=== PATIENT | male | born 1975 | race Two or more races ===

== ENCOUNTER 2019-05-09 01:55 | Emergency (ER) | payer MEDICARE, MEDICAID ==
[~2019-05-09] VITALS: Ht 177.8 cm; Wt 99.8 kg
[2019-05-09] MEDS ORDERED: METFORMIN HCL500 M1 ORAL (01:57)
[2019-05-09] MEDS ORDERED: Isovue-300 100ml vial INJ PRN ×2 (02:00→04:15)
--- NOTE | 2019-05-09 02:13 | Emergency Room Report ---
History of Present Illness General Chief Complaint: Abdominal Pain Source: Patient Present Illness HPI Presents with epigastric/right upper quadrant pain x1 day, no aggravating or alleviating factors severity is severe, symptoms are constant, patient endorses a sharp pain patient states that he had some form of pancreatic surgery at one point, he denies any nausea vomiting fevers chills chest pain or shortness of breath. Allergies: Coded Allergies: No Known Allergies (Unverified , 05/09/19) Nursing Documentation-[facility] Past Medical History: No History, Except For Hx Hypertension: Yes Hx Diabetes: Yes Physical Exam Vital Signs Date Time Temp Pulse Resp B/P (MAP) Pulse Ox O2 Delivery O2 Flow Rate FiO2 05/09/19 01:55 97.9 100 14 112/70 (84) 94 Room Air Medical Decision Making Diagnostic Impression: Primary Impression: Abdominal pain Qualified Codes: R10.84 - Generalized abdominal pain ER Course 43-year-old male presents with abdominal pain differential diagnosis includes cholecystitis, diverticulitis, appendicitis Patient given pain medication, fluids, will obtain labs, CT Reevaluation 5:35 AM, patient is asymptomatic Patient with abdominal pain of unknown etiology, patient given strict abdominal return precautions, disposition home with return precautions Laboratory Tests Test 05/09/19 02:50 05/09/19 03:10 White Blood Count 5.5 K/UL (4.8-10.8) Red Blood Count 3.94 M/UL (4.70-6.10) L Hemoglobin 12.5 G/DL (14.2-18.0) L Hematocrit 35.6 % (42.0-52.0) L Mean Corpuscular Volume 90 FL (80-99) Mean Corpuscular Hemoglobin 31.8 PG (27.0-31.0) H Mean Corpuscular Hemoglobin Concent 35.1 G/DL (32.0-36.0) Red Cell Distribution Width 11.5 % (11.6-14.8) L Platelet Count 279 K/UL (150-450) Mean Platelet Volume 5.3 FL (6.5-10.1) L Neutrophils (%) (Auto) 55.6 % (45.0-75.0) Lymphocytes (%) (Auto) 34.2 % (20.0-45.0) Monocytes (%) (Auto) 6.9 % (1.0-10.0) Eosinophils (%) (Auto) 1.5 % (0.0-3.0) Basophils (%) (Auto) 1.7 % (0.0-2.0) Prothrombin Time 10.1 SEC (9.30-11.50) Prothrombin Time INR 0.9 (0.9-1.1) PTT 21 SEC (23-33) L Sodium Level 144 MMOL/L (136-145) Potassium Level 3.9 MMOL/L (3.5-5.1) Chloride Level 110 MMOL/L (98-107) H Carbon Dioxide Level 21 MMOL/L (21-32) Anion Gap 13 mmol/L (5-15) Blood Urea Nitrogen 5 mg/dL (7-18) L Creatinine 0.9 MG/DL (0.55-1.30) Estimate Glomerular Filtration Rate > 60 mL/min (>60) Glucose Level 171 MG/DL (74-106) H Calcium Level 8.5 MG/DL (8.5-10.1) Total Bilirubin 0.3 MG/DL (0.2-1.0) Aspartate Amino Transferase (AST) 35 U/L (15-37) Alanine Aminotransferase (ALT) 36 U/L (12-78) Alkaline Phosphatase 83 U/L (46-116) Total Protein 7.4 G/DL (6.4-8.2) Albumin 3.3 G/DL (3.4-5.0) L Globulin 4.1 g/dL Albumin/Globulin Ratio 0.8 (1.0-2.7) L Lipase 203 U/L (73-393) Urine Color Yellow Urine Appearance Clear Urine pH 5 (4.5-8.0) Urine Specific [place] 1.025 (1.005-1.035) Urine Protein 2+ (NEGATIVE) H Urine Glucose (UA) Negative (NEGATIVE) Urine Ketones 2+ (NEGATIVE) H Urine Blood Negative (NEGATIVE) Urine Nitrite Negative (NEGATIVE) Urine Bilirubin Negative (NEGATIVE) Urine Urobilinogen Normal MG/DL (0.0-1.0) Urine Leukocyte Esterase 1+ (NEGATIVE) H Urine RBC 0 /HPF (0 - 0) Urine WBC 10-15 /HPF (0 - 0) H Urine Squamous Epithelial Cells None /LPF (NONE/OCC) Urine Bacteria Few /HPF (NONE) EKG Diagnostic Results EKG Time: 02:06 EP Interpretation: Sinus tachycardia, rate 106, QTc 435, normal axis, no acute ST elevations Rhythm Strip Diag. Results Rhythm Strip Time: 03:13 EP Interpretation: yes Rate: 107 Rhythm: other - Sinus tachycardia Last Vital Signs Date Time Temp Pulse Resp B/P (MAP) Pulse Ox O2 Delivery O2 Flow Rate FiO2 05/09/19 01:55 97.9 100 14 112/70 (84) 94 Room Air Disposition: HOME, SELF-CARE Condition: Stable Scripts Naproxen* (NAPROSYN*) 250 Mg Tablet 250 MG ORAL BID PRN for For Pain, #20 TAB 0 Refills Prov: Sohail Montano MD 05/09/19 Referrals: [facility] Patient Instructions: Abdominal Pain, Adult Additional Instructions: The patient was provided with discharge instructions, notified to follow-up with a primary care doctor and or specialist in the next 24-48 hours, and to return to the ED if they have worsening of their symptoms. Please note that this report is being documented using Brightfish technology. This can lead to erroneous entry secondary to incorrect interpretation by the dictating instrument. Sohail Montano MD May 09, 2019 02:13
[2019-05-09] MEDS ORDERED: Morphine Sulfate 4mg/ml Inj (IV USE ONLY) IVP ONE (02:45)
[2019-05-09 03:00] VITALS: BP 128/82
[2019-05-09 03:18] LABS: BASOPHILS % (AUTO) 1.7 % (0.0-2.0); EOSINOPHILS % (AUTO) 1.5 % (0.0-3.0); HEMATOCRIT 35.6 % (42.0-52.0); HEMOGLOBIN 12.5 G/DL (14.2-18.0); LYMPHOCYTES % (AUTO) 34.2 % (20.0-45.0); MEAN CORPUSCULAR VOLUME 90 FL (80-99); MONOCYTES % (AUTO) 6.9 % (1.0-10.0); NEUTROPHILS % (AUTO) 55.6 % (45.0-75.0); PLATELET COUNT 279 K/UL (150-450); RED BLOOD COUNT 3.94 M/UL (4.70-6.10); RED CELL DISTRIBUTION WIDTH 11.5 % (11.6-14.8); WHITE BLOOD COUNT 5.5 K/UL (4.8-10.8)
--- NOTE | 2019-05-09 03:30 | NUR ---
ED Nurse Note: Recieved report from Eva. Pt ambulated to ED from work c/o 06/07 abdominal pain. Pt denies N/V/D, VSS, A&Ox4
[2019-05-09 03:31] LABS: INR 0.9 (0.9-1.1)
[2019-05-09 03:36] LABS: ANION GAP 13 mmol/L (5-15); BLOOD UREA NITROGEN 5 mg/dL (7-18); CALCIUM 8.5 MG/DL (8.5-10.1); CARBON DIOXIDE 21 MMOL/L (21-32); CHLORIDE 110 MMOL/L (98-107); CREATININE 0.9 MG/DL (0.55-1.30); POTASSIUM 3.9 MMOL/L (3.5-5.1); SODIUM 144 MMOL/L (136-145)
[2019-05-09 03:41] LABS: ALANINE AMINOTRANSFERASE 36 U/L (12-78); ALBUMIN 3.3 G/DL (3.4-5.0); ALBUMIN/GLOBULIN RATIO 0.8 (1.0-2.7); ALKALINE PHOSPHATASE 83 U/L (46-116); ASPARTATE AMINO TRANSFERASE 35 U/L (15-37); BILIRUBIN,TOTAL 0.3 MG/DL (0.2-1.0)
[2019-05-09 03:44] LABS: APPEARANCE,URINE CLEAR; BILIRUBIN, URINE NEGATIVE (NEGATIVE); GLUCOSE, URINE (UA) NEGATIVE (NEGATIVE); KETONES,URINE 2+ (NEGATIVE); LEUKOCYTE ESTERASE ,URINE 1+ (NEGATIVE); NITRITE,URINE NEGATIVE (NEGATIVE); PH,URINE 5 (4.5-8.0); PROTEIN,URINE 2+ (NEGATIVE); UROBILINOGEN,URINE NORMAL MG/DL (0.0-1.0)
[2019-05-09 03:49] LABS: COLOR,URINE YELLOW
--- NOTE | 2019-05-09 06:16 | Diagnostic Imaging Report ---
Clinical Indication: Abdominal pain Technique: No oral contrast utilized, per emergency room physician request IV administration nonionic contrast. Multiphasic spiral acquisitions obtained through the abdomen. Exam was requested as abdomen and pelvis, but apparently patient moved prior to scanning resulting in failure to scan the pelvis. Multiplanar reconstructions were generated. Total dose length product 951.4 mGycm. CTDIvol(s) 18.4 mGy. Dose reduction achieved using automated exposure control Comparison: none Findings: There is nonspecific haziness to the fat of the mesenteric root. The distal esophagus and duodenum are unremarkable. The stomach demonstrates a linear metallic foreign body posteriorly in the fundus. The visualized small bowel and colon are unremarkable. Lack of IV contrast limits assessment of solid organs. The liver is mildly hypoattenuating, consistent with fatty change. No gross focal abnormality. The gallbladder is nondistended. No biliary ductal dilatation. The pancreas, spleen adrenals are unremarkable. There is nonspecific bilateral perinephric fat stranding. The right kidney demonstrates considerable lower pole cortical scarring. There are at least 2 punctate calyceal calcifications on the right. No left renal calculi demonstrated.. Most of the chest was included in the imaging volume. The included lungs are clear except for some posterior basilar dependent atelectatic changes. The heart size is normal. No pericardial effusion. No mediastinal or hilar mass or adenopathy. No axillary or chest wall mass or adenopathy. Impression: Limited exam, as described, with nonvisualization of the pelvis Nonspecific increased attenuation of the fat of the mesenteric root Linear foreign body within the stomach. This may be an ingested foreign body or represent an endoscopically placed surgical clip Fatty liver Right renal calculi. Right renal cortical scarring Nonspecific bilateral perinephric fat stranding Basilar pulmonary parenchymal atelectatic changes This essentially agrees with the preliminary interpretation provided overnight by [place] [facility], with minor variations. The CT scanner at [facility] is accredited by the [place] and the scans are performed using protocols designed to limit radiation exposure to as low as reasonably achievable to attain images of sufficient resolution adequate for diagnostic evaluation.
[2019-05-09] MEDS ORDERED: NAPROXEN250 MG ORAL (06:19)
[2019-05-09 06:30] VITALS: BP 128/82
--- NOTE | 2019-05-09 06:30 | NUR ---
ER DISCHARGE NOTE: Patient is cleared to be discharged per ERMD, pt is aox4, on room air, with stable vital signs. pt was given dc and prescription instructions, pt was able to verbalize understanding, pt id band and iv site removed without complications. pt is able to ambulate with steady gait. pt took all belongings.
--- NOTE | 2019-05-09 18:44 | Cardiology Report ---
APPROVED REPORT EKG Measurement Heart [id number] IL 118P29 [id number] Sinus tachycardia Otherwise normal ECG
== END 2019-05-09 06:30 | disposition home or self-care (01) ==
LOC: EDBD 01:55 → EMR 02:08
DX: R10.84 Generalized abdominal pain (principal); E11.9 Type 2 diabetes mellitus without complications; I10 Essential (primary) hypertension
CPT/HCPCS: 36415; 74160; 80053; 81003; 83690; 85025; 85610; 85730; 86850; 86900; 86901; 87086; 93005; 96374; 96375; 99284; J2270; J2405; Q9967; S0028

== ENCOUNTER 2019-05-09 23:25 | Emergency (ER) | payer MEDICARE, MEDICAID ==
[~2019-05-09] VITALS: Ht 172.7 cm; Wt 81.6 kg
[~2019-05-09 23:25] MED LIST: METFORMIN HCL500 M1 ORAL; NAPROXEN250 MG ORAL
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
[2019-05-10] VITALS (10 sets, daily range): BP systolic 105–135; BP diastolic 56–89
--- NOTE | 2019-05-10 | NUR ---
ED Nurse Note: pt admits drinking and smoking marijuana today.
--- NOTE | 2019-05-10 00:20 | NUR ---
BELONGINGS IN LOCKER 2
[2019-05-10 00:51] LABS: BASOPHILS % (AUTO) 0.7 % (0.0-2.0); EOSINOPHILS % (AUTO) 2.1 % (0.0-3.0); HEMATOCRIT 34.7 % (42.0-52.0); HEMOGLOBIN 12.3 G/DL (14.2-18.0); LYMPHOCYTES % (AUTO) 33.6 % (20.0-45.0); MEAN CORPUSCULAR VOLUME 91 FL (80-99); MONOCYTES % (AUTO) 11.1 % (1.0-10.0); NEUTROPHILS % (AUTO) 52.6 % (45.0-75.0); PLATELET COUNT 281 K/UL (150-450); RED BLOOD COUNT 3.81 M/UL (4.70-6.10); RED CELL DISTRIBUTION WIDTH 12.1 % (11.6-14.8); WHITE BLOOD COUNT 4.9 K/UL (4.8-10.8)
[2019-05-10 01:06] LABS: ANION GAP 12 mmol/L (5-15); BLOOD UREA NITROGEN 9 mg/dL (7-18); CALCIUM 8.2 MG/DL (8.5-10.1); CARBON DIOXIDE 25 MMOL/L (21-32); CHLORIDE 111 MMOL/L (98-107); CREATININE 0.9 MG/DL (0.55-1.30); POTASSIUM 3.6 MMOL/L (3.5-5.1); SODIUM 148 MMOL/L (136-145)
[2019-05-10 01:10] LABS: ALANINE AMINOTRANSFERASE 30 U/L (12-78); ALBUMIN 3.3 G/DL (3.4-5.0); ALBUMIN/GLOBULIN RATIO 0.9 (1.0-2.7); ALKALINE PHOSPHATASE 87 U/L (46-116); ASPARTATE AMINO TRANSFERASE 16 U/L (15-37); BILIRUBIN,TOTAL 0.2 MG/DL (0.2-1.0)
--- NOTE | 2019-05-10 02:00 | NUR ---
ED Nurse Note: pt sleeping at this time, no sx of distress noted, vss, resp even and unlabored on RA, will cont monitor.
--- NOTE | 2019-05-10 05:00 | NUR ---
ED Nurse Note: repeat alcohol level serum redraw done, will send to lab.
--- NOTE | 2019-05-10 05:15 | NUR ---
ED Nurse Note: ordered tray per protocol.
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
--- NOTE | 2019-05-10 07:21 | NUR ---
HAND-OFF: Report given to HELEN HERRING and endorsed care.
[2019-05-10 09:21] LABS: APPEARANCE,URINE CLEAR; BILIRUBIN, URINE NEGATIVE (NEGATIVE); COLOR,URINE PALE YELLOW; GLUCOSE, URINE (UA) NEGATIVE (NEGATIVE); KETONES,URINE NEGATIVE (NEGATIVE); LEUKOCYTE ESTERASE ,URINE NEGATIVE (NEGATIVE); NITRITE,URINE NEGATIVE (NEGATIVE); PH,URINE 5 (4.5-8.0); PROTEIN,URINE NEGATIVE (NEGATIVE); UROBILINOGEN,URINE NORMAL MG/DL (0.0-1.0)
--- NOTE | 2019-05-10 11:07 | NUR ---
ED Nurse Note: Pt. stated that he is still SI and plans to run in and out of the traffic
--- NOTE | 2019-05-10 11:33 | Diagnostic Imaging Report ---
Indication: left ankle pain Comparison: None Findings: 3 views of the left ankle obtained. There is no obvious acute fracture identified. There is generalized soft tissue swelling especially in the medial side ankle. There are 2 lag screws horizontally oriented, anterior to posterior within the talus presumably reducing a fracture no longer visible. 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 The subtalar joint is not visualized and could be fused or severely arthritic. IMPRESSION: No acute fracture identified. Soft tissue swelling noted. Post fracture deformity of the talus, tibiotalar joint with severe arthrosis.
--- NOTE | 2019-05-10 11:35 | Diagnostic Imaging Report ---
Indication: Pain right ankle Comparison: None Findings: 3 views of the right ankle obtained. No acute fracture, malalignment, periostitis, or osteochondral defects are identified. There is severe arthrosis of the tibiotalar joint characterized by narrowing and osteophyte formation. There is a lateral compression plate noted old fractures of the fibula noted.. Impression: No acute fracture. Severe arthrosis
--- NOTE | 2019-05-10 12:10 | NUR ---
ED Nurse Note: Lunch left at pt's bed side. Pt not eating and just sleeping at this time. VSS.
--- NOTE | 2019-05-10 12:54 | NUR ---
ED Nurse Note: REPORT GIVEN TO HELEN BAINS FROM [facility]
--- NOTE | 2019-05-10 12:56 | NUR ---
ED Nurse Note: PT. IS AGREED TO VOLUNTARILY GET TRANSFERRED TO A PSYCH FACILITY([facility])
--- NOTE | 2019-05-10 16:36 | NUR ---
ED Nurse Note: Pt transferred to [facility] for psych placement with all belongings sent with him. ID band/IV access removed. Stable for transfer.
== END 2019-05-10 16:36 ==
LOC: EMR 23:58
DX: F91.9 Conduct disorder, unspecified (principal); F32.9 Major depressive disorder, single episode, unspecified; F10.929 Alcohol use, unspecified with intoxication, unspecified; Y90.6 Blood alcohol level of 120-199 mg/100 ml; I10 Essential (primary) hypertension; E11.9 Type 2 diabetes mellitus without complications; M25.572 Pain in left ankle and joints of left foot; M25.571 Pain in right ankle and joints of right foot
CPT/HCPCS: 36415; 73610; 80053; 80307; 81003; 83690; 85025; 96360; 99285; G0480; 80329